=== PATIENT | male | born 1965 | race Two or more races ===

== ENCOUNTER 2024-06-11 14:37 | Emergency (ER) | payer MEDICAID, SELFPAY ==
--- NOTE | 2024-06-11 14:42 | EKG_ITS ---
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: : 1965 Requested By: ED Temporary Provider Order Number: [id number] Reading MD: ED Temporary Provider Measurements Intervals [place] Rate: 58 P: 60 MN: 143 QRS: -45 QRSD: 124 T: 4 QT: 399 QTc: 395 Interpretive Statements SINUS BRADYCARDIA WITH OCCASIONAL VENTRICULAR PREMATURE COMPLEXES POSSIBLE RIGHT VENTRICULAR CONDUCTION DELAY [RSR (QR) IN V1/V2] LEFT ANTERIOR FASCICULAR BLOCK [QRS AXIS <= -45, QR IN I, RS IN II] MODERATE VOLTAGE CRITERIA FOR LVH, CONSIDER NORMAL VARIANT [MEETS CRITERIA IN ONE OF: R(aVL), S(V1), R(V5), R(V5/V6)+S(V1)] NONSPECIFIC T-WAVE ABNORMALITY No previous ECG available for comparison /store/S0/[id number].pdf
[2024-06-11 15:55] VITALS: BP 149/79; PULSE 67; RESP 18; TEMP 36.9; O2SAT 95; BMI 38.7
--- NOTE | 2024-06-11 16:13 | XR_ITS ---
Examination: PA lateral chest 2 views TECHNIQUE: Upright PA lateral chest 2 views Exam date and time: June 11, 2024 1628 hours INDICATIONS: Chest pain left arm pain numbness nausea beginning today. FINDINGS: Mild prominence left ventricle Increased AP dimension chest on the lateral view Reduced inspiratory effort Suspicious for early pneumonia left base obscuring detail left hemidiaphragm No pulmonary edema IMPRESSION: Suspicious for early left base pneumonia
--- NOTE | 2024-06-11 16:13 | PD.EDRME ---
Rapid Medical Screening Exam RME Arrival date/time: 06/11/24 14:37 58-year-old male who admits to not taking his blood pressure medication presents emergency department today with complaints of elevated blood pressure and chest pain Chief Complaint: Chest Pain Time Seen by Provider: 06/11/24 14:43 Vital signs: Vital Signs Temperature 98.5 F 06/11/24 15:55 Pulse Rate 67 06/11/24 15:55 Respiratory Rate 18 06/11/24 15:55 Blood Pressure 149/79 H 06/11/24 15:55 Pulse Oximetry (%) 95 06/11/24 15:55 Oxygen Delivery Method Room Air 06/11/24 15:55
[2024-06-11 16:40] LABS: Collection Type, Urine Clean Catch; Squamous Epithelial Cell,Urine 0 /hpf (0-5); WBC,Urine 0 /hpf (0-5)
[2024-06-11 16:54] LABS: Amphetamine/Methamp Scrn,U Negative (Negative); Barbiturate Screen,Urine Negative (Negative); Benzodiazepines Screen,Urine Negative (Negative); Benzoylecgonine Screen, Ur Negative (Negative); Fentanyl Screen,Urine Negative (Negative); Opiate Screen,Urine Negative (Negative); THC Screen,Urine Negative (Negative)
[2024-06-11 17:20] LABS: Basophils % (Auto) 0 % (0-2.5); Eosinophils # (Auto) 0.1 Thou/mm3 (0.0-0.5); Eosinophils % (Auto) 1 % (0-10); Hematocrit 47.5 % (41.0-53.0); Hemoglobin 16.7 g/dL (13.5-16.0); Immature Granulocytes % (Auto) 0 % (0-0); Immature Granulocytes Auto 0.02 Thou/mm3 (0.00-0.00); Lymphocytes # (Auto) 1.8 Thou/mm3 (1.0-4.8); Lymphocytes % (Auto) 22 % (10-50); Mean Corpuscular HGB Conc 35.2 g/dl (31.0-37.0); Mean Corpuscular Hemoglobin 30.1 pg (25.0-35.0); Mean Corpuscular Volume 86 fL (80-100); Monocytes # (Auto) 0.9 Thou/mm3 (0.0-0.8); Monocytes % (Auto) 10 % (0-12); Neutrophils # (Auto) 5.5 Thou/mm3 (1.8-7.7); Neutrophils % (Auto) 67 % (37-80); Nucleated Red Blood Cell % 0 /100 WBC (0); Platelet Count 251 Thou/mm3 (140-440); RDW Standard Deviation 39.9 fL (35.1-43.9); Red Blood Count 5.55 Miln/mm3 (4.50-5.90); White Blood Count 8.3 Thou/mm3 (3.8-10.6)
[2024-06-11 17:20] LABS: Bilirubin,Urine Negative (Negative); Blood,Urine Negative (Negative); Clarity,Urine Clear (Clear/Hazy); Color,Urine Yellow (Lt Yel-Yel); Glucose, Urine Negative (Negative); Hyaline Casts,Urine < 1 /hpf (0-1); Ketones,Urine Negative (Negative); Leukocyte Esterase,Urine Negative (Negative); Nitrite,Urine Negative (Negative); Protein,Urine 1+ (Neg - Trace); RBC,Urine < 1 /hpf (0-3); Specific Gravity,Urine 1.034 (1.001-1.035)
[2024-06-11 17:31] LABS: INR 0.9 (0.9-1.3); Partial Thromboplastin Time 25.8 Seconds (22.0-36.0); Prothrombin Time 10.4 Seconds (9.0-12.2)
[2024-06-11 17:32] LABS: B-Type Natriuretic Peptide < 20 pg/mL (0-100)
[2024-06-11 17:33] LABS: Alanine Aminotransferase 26 U/L (10-49); Albumin, Serum 4.7 gm/dL (3.5-5.0); Albumin/Globulin Ratio 1.6 (1.2-2.2); Alkaline Phosphatase 93 U/L (46-116); Anion Gap 10 (7-16); Aspartate Amino Transferase 23 U/L (0-34); BUN/Creatinine Ratio 17 Ratio (12-20); Bilirubin,Total 1.2 mg/dL (0.3-1.2); Blood Urea Nitrogen 17 mg/dL (9-23); Calcium 9.5 mg/dL (8.3-10.6); Calcium (Corrected) 9.5 mg/dL (8.5-10.1); Carbon Dioxide 25.9 mMol/L (20.0-31.0); Chloride 104 mMol/L (98-107); Estimated Creatinine Clearance 95.5 mL/min (>60); Globulin 2.9 gm/dL (2.3-3.5); Glucose 82 mg/dL (74-106); Magnesium 2.2 mg/dL (1.6-2.6); Osmolality,Calculated 279 (275-295); Potassium 3.7 mMol/L (3.4-5.1); Sodium 140 mMol/L (136-145); Total Protein 7.6 gm/dL (5.7-8.2); Troponin I < 0.020 ng/mL (0.0-0.045); eGFR > 60 See Note
--- NOTE | 2024-06-11 19:20 | EDNOTE_ITS ---
ED Chest Pain RME/HPI General Chief Complaint: Chest Pain Stated Complaint: CHEST PAIN, LEFT ARM NUMBNESS, NAUSEA Time Seen by Provider: 06/11/24 14:43 Arrival date/time: 06/11/24 14:37 RME / HPI RME / HPI narrative: 58-year-old male patient who came in for evaluation regarding left-sided chest pain. Onset of symptoms for several months as on and off stabbing chest pain on the left that lasted for few seconds, severity moderate. Today he is worried because it radiates to the left arm. He also noticed that his blood pressure was elevated. First time he is taking his blood pressure medication again today. Denies any cough denies any shortness of breath. Denies any cigarette smoking, denies any drug abuse, denies any alcohol abuse. Denies any other complaints. No medication was taken prior travel. Related Data Home Medications ?Medication ?Instructions ?Recorded ?Confirmed lisinopril 30 mg tablet 40 mg PO QDAY #0 tabs 11/30/16 omeprazole 20 mg capsule,delayed 20 mg PO QDAY ##0 03/06/17 release Previous Rx's ?Medication ?Instructions ?Recorded hydrocodone 5 mg-acetaminophen 325 1 tab PO BID PRN pain #10 tabs 10/23/20 mg tablet ibuprofen 800 mg tablet 800 mg PO TID PRN pain #30 tabs 10/23/20 ibuprofen 800 mg tablet 800 mg PO TID PRN pain #30 tabs 04/26/23 Allergies Allergy/AdvReac Type Severity Reaction Status Date / Time haloperidol Allergy Severe FACIAL Verified 04/26/23 12:35 DROOP, LOC, SWALLOWS TONGUE Haloperidol Lactate Allergy Severe FACIAL Verified 04/26/23 12:35 DROOP, LOC, SWALLOWS TONGUE buspirone Allergy Unknown Swelling Verified 11/13/23 09:46 loxapine Allergy Unknown SOB Verified 04/26/23 12:35 Review of Systems Review of Systems Narrative Review of Systems: Review of system reviewed and within normal limits except mentioned in HPI ED Exam Narrative Physical exam: VITAL SIGNS: Reviewed. GENERAL APPEARANCE: Alert and interactive, follows commands, no acute distress, HEAD AND FACE: Non-traumatic. ENT: PERRL, pink conjunctivitis, eyelid no trauma, Mucous membrane moist. NECK: Supple, nontender, no nuchal rigidity. CHEST: No tenderness, no crepitus, no paradoxical movement, no retractions. LUNGS: Clear, well ventilated, symmetric, no rales, no wheezing, no ronchi, no stridor, good breath sounds bilaterally. HEART: Regular rate, regular rhythm, no murmur, no gallops. ABDOMEN: Soft, positive bowel sounds, nondistended, no guarding, nontender, no rebound, no masses, RECTAL: Deferred. GENITAL: Deferred. NEUROLOGICAL: Gross motor function intact sensory function intact, Appropriate for age. MUSCULOSKELETAL: low back nontender, full range of motion. EXTREMITIES: Nontender, full range of motion. SKIN: Color pink, dry, no rash, no lacerations, no abrasions, no contusions. LYMPHATICS: Deferred. Course Quality Measures none Orders Category Date Time Status EKG (ED ONLY) *Do not use* NOW Care 06/11/24 14:42 Completed EKG (ED Only) Stat Exams 06/11/24 14:42 Draft XR chest 2V Stat Exams 06/11/24 16:13 Completed B-Type Natriuretic Peptide Stat Lab 06/11/24 16:34 Completed CBC Stat Lab 06/11/24 16:34 Completed Comprehensive Metabolic Panel Stat Lab 06/11/24 16:34 Completed Drug Screen,Urine Stat Lab 06/11/24 16:33 Completed Magnesium Stat Lab 06/11/24 16:34 Completed Partial Thromboplastin Time Stat Lab 06/11/24 16:34 Completed Prothrombin Time with INR Stat Lab 06/11/24 16:34 Completed Troponin I Stat Lab 06/11/24 16:34 Completed Urinalysis Stat Lab 06/11/24 16:33 Completed Vital Signs Vital signs: Vital Signs Temperature 98.5 F 06/11/24 15:55 Pulse Rate 67 06/11/24 15:55 Respiratory Rate 18 06/11/24 15:55 Blood Pressure 149/79 H 06/11/24 15:55 Pulse Oximetry (%) 95 06/11/24 15:55 Oxygen Delivery Method Room Air 06/11/24 15:55 Chest Pain MDM Narrative MDM Narrative:: 58-year-old male patient who came in for evaluation regarding left-sided chest pain. Onset of symptoms for several months as on and off stabbing chest pain on the left that lasted for few seconds, severity moderate. Today he is worried because it radiates to the left arm. He also noticed that his blood pressure was elevated. First time he is taking his blood pressure medication again today. Denies any cough denies any shortness of breath. Denies any cigarette smoking, denies any drug abuse, denies any alcohol abuse. Denies any other complaints. No medication was taken prior travel. Patient's workup today including cardiac workup, all came back normal. Chest x- ray showed possible left pneumonia however patient is not having any chest pain on coughing, and denies any cough, denies any fever. Blood pressure was noted to be 149/79 prior to discharge. Patient appears nontoxic and hemodynamically stable. Patient discharged home and instructed to follow-up with primary care provider in 24 to 48 hours. Instructed to return to the emergency department immediately if worsening of symptoms Patient data External records reviewed:: None Clinical information provided by:: patient and family Social determinants that could affect healthcare access:: none Patient has the following chronic illnesses:: Hypertension How is presenting disease/condition affected by chronic disease/condition?: exacerbated by Evaluation data The following diagnostics were reviewed and interpreted by me:: lab results, radiology exam(s) and EKG tracing(s) Lab and/or radiology exams considered but not ordered:: None Interpretation Summary: EKG as interpreted by me shows sinus bradycardia, ventricular rate of 58 bpm, no ST segment elevation depression noted. Laboratory workup all came back unremarkable including normal troponin. Chest x-ray with possible pneumonia beginning according to the radiologist. Medications / Prescriptions Medications or Prescriptions considered but not ordered:: None Medication administrations:: None Consultations Consultation(s) initiated? (list below): No Diagnosis Chest Pain Differential Diagnosis: pneumothorax, atypical chest pain and chest pain Most likely diagnosis given after review of the tests above:: Intermittent chest pain, hypertension Admission Indicated Admission indicated?: not indicated Explain why admission is indicated or not indicated:: None Admission Request Was there a request for admission?: No Disposition Plan Disposition Plan: Discharge Discharge Attestation Discharge Attestation: The patient and all family members were given an opportunity to ask questions and understood the discharge instructions. Discharge instructions specifically effects, indications for sooner follow up or return to the emergency department, and the expected course of current diagnosis. Patient condition: Stable Discharge Plan Plan Patient Disposition: HOME (Self Care) Disposition Comment: stable Prescriptions/Referrals Prescriptions/Med Rec: No Action lisinopril 30 MG tablet 40 mg PO QDAY Qty: 0 omeprazole 20 MG capsule,delayed release(DR/EC) 20 mg PO QDAY Qty: 0 ibuprofen 800 mg tablet 800 mg PO TID PRN (Reason: pain) Qty: 30 0RF hydrocodone-acetaminophen 5-325 mg tablet 1 tab PO BID MDD 10 PRN (Reason: pain) Qty: 10 0RF ibuprofen 800 mg tablet 800 mg PO TID PRN (Reason: pain) Qty: 30 0RF Referrals: Kevin Nguyễn PA-C [Primary Care Provider] - In 1 week Problem List Clinical Impression: Intermittent left-sided chest pain Patient/Caregiver Discharge Instructions Discharge Activity: activity as tolerated Education Materials: ED Chest Pain, Uncertain Cause Additional Instructions: Thank you for the opportunity for serving you today. You are stable for discharged . You are advised to: Follow-up with your PCP in 1 to 2 days and asked for referral to interchange agent Return to ED for worsening of symptoms Print Language: Pakistani Stand Alone Forms: Kiley Award Info., Patient Portal Info Letter SARAH/RAMANDEEP Supervising Physician EBONY Supervising Physician: MD Jovana
== END 2024-06-11 20:29 | disposition home or self-care (01) ==
PROVIDERS: Nurse Practitioner Primary Care; Emergency Provider Emergency Medicine; PCP Physician Assistant
DX: R07.89 Other chest pain (principal); R00.1 Bradycardia, unspecified; I49.3 Ventricular premature depolarization; I44.4 Left anterior fascicular block; I10 Essential (primary) hypertension
CPT/HCPCS: 36415; 71046; 80053; 80307; 81001; 83735; 83880; 84484; 85025; 85610; 85730; 93005; 99283

== ENCOUNTER 2025-03-19 12:52 | Emergency (ER) | payer MEDICAID, SELFPAY ==
[2025-03-19 13:01] VITALS: BP 154/78; PULSE 68; RESP 20; TEMP 36.6; O2SAT 96; BMI 38.9
--- NOTE | 2025-03-19 13:18 | PD.EDWOUND ---
ED Wound/Laceration-RME/HPI General Chief Complaint: Wound/Laceration Stated Complaint: Laceration to chest from window Time Seen by Provider: 03/19/25 12:57 Arrival date/time: 03/19/25 12:52 59-year-old male patient came in for evaluation regarding left anterior chest wall laceration. Patient sustained a laceration earlier today with electric saw while cutting the window resulting into 4 cm gaping laceration. Patient denies any shortness of breath denies any chest pain. Denies any other injury. Tetanus vaccination is 1 year old. Related Data Home Medications ?Medication ?Instructions ?Recorded ?Confirmed lisinopril 30 mg tablet 40 mg PO QDAY #0 tabs 11/30/16 omeprazole 20 mg capsule,delayed 20 mg PO QDAY ##0 03/06/17 release Previous Rx's ?Medication ?Instructions ?Recorded hydrocodone 5 mg-acetaminophen 325 1 tab PO BID PRN pain #10 tabs 10/23/20 mg tablet ibuprofen 800 mg tablet 800 mg PO TID PRN pain #30 tabs 10/23/20 ibuprofen 800 mg tablet 800 mg PO TID PRN pain #30 tabs 04/26/23 ibuprofen 800 mg tablet 800 mg PO Q8H PRN pain #30 tabs 03/19/25 Allergies Allergy/AdvReac Type Severity Reaction Status Date / Time haloperidol Allergy Severe FACIAL Verified 03/19/25 12:56 DROOP, LOC, SWALLOWS TONGUE Haloperidol Lactate Allergy Severe FACIAL Verified 03/19/25 12:56 DROOP, LOC, SWALLOWS TONGUE buspirone Allergy Unknown Swelling Verified 03/19/25 12:56 loxapine Allergy Unknown SOB Verified 03/19/25 12:56 Review of Systems Review of Systems Narrative Review of Systems: Review of system reviewed and within normal limits except mentioned in HPI ED Exam Narrative Physical exam: VITAL SIGNS: Reviewed. GENERAL APPEARANCE: Alert and interactive, follows commands, no acute distress, HEAD AND FACE: Non-traumatic. ENT: PERRL, pink conjunctivitis, eyelid no trauma, Mucous membrane moist. NECK: Supple, nontender, no nuchal rigidity. CHEST: +4 cm laceration left anterior chest wall, no active bleeding noted, no crepitus, no paradoxical movement, no retractions. LUNGS: Clear, well ventilated, symmetric, no rales, no wheezing, no ronchi, no stridor, good breath sounds bilaterally. HEART: Regular rate, regular rhythm, no murmur, no gallops. ABDOMEN: Soft, positive bowel sounds, nondistended, no guarding, nontender, no rebound, no masses, RECTAL: Deferred. GENITAL: Deferred. NEUROLOGICAL: Gross motor function intact sensory function intact, Appropriate for age. MUSCULOSKELETAL: low back nontender, full range of motion. EXTREMITIES: Nontender, full range of motion. SKIN: Color pink, dry, no rash, no lacerations, no abrasions, no contusions. LYMPHATICS: Deferred. Course Quality Measures none Orders Category Date Time Status Ibuprofen Tab [Motrin Tab] Med 03/19/25 13:17 Discontinued 800 mg PO X1 ONE Lidocaine 1% 20 ml [Xylocaine 1% 20 ML] Med 03/19/25 13:17 Discontinued 20 ml INFL X1 ONE Vital Signs Vital signs: Vital Signs Temperature 97.9 F 03/19/25 13:01 Pulse Rate 68 03/19/25 13:01 Respiratory Rate 20 03/19/25 13:01 Blood Pressure 154/78 H 03/19/25 13:01 Pulse Oximetry (%) 96 03/19/25 13:01 Oxygen Delivery Method Room Air 03/19/25 13:01 PROCEDURES: Laceration Laceration 1: Site: chest Side (If applicable): left Size (cm): 6 Description: irregular Depth: simple, single layer Local Anesthetic: lidocaine 1% Amount of anesthesia used (mL): 10 Pre-repair: wound explored, deep structures intact and wound margins revised Skin layer closed with: nylon Suture size (cm): 4-0 Number of sutures: 8 Technique: simple, interrupted Wound / Laceration MDM Narrative MDM Narrative:: 59-year-old male patient came in for evaluation regarding left anterior chest wall laceration. Patient sustained a laceration earlier today with electric saw while cutting the window resulting into 4 cm gaping laceration. Patient denies any shortness of breath denies any chest pain. Denies any other injury. Tetanus vaccination is 1 year old. Chest x-ray is negative this time. Patient is not having any shortness of breath or chest pain. Laceration is superficial. I do not suspect any penetration. To the thoracic cavity Repair and suturing was done by me see procedure note Patient data External records reviewed:: None Clinical information provided by:: family Social determinants that could affect healthcare access:: none Patient has the following chronic illnesses:: None How is presenting disease/condition affected by chronic disease/condition?: no chronic disease Evaluation data The following diagnostics were reviewed and interpreted by me:: other (specify) (None) Lab and/or radiology exams considered but not ordered:: None Interpretation Summary: None Medications / Prescriptions Medications or Prescriptions considered but not ordered:: None Medication administrations:: Medication Administration History Discontinued Medications Ibuprofen (Ibuprofen Tab 400 Mg Tablet) 800 mg PO X1 ONE Stop: 03/19/25 13:18 Last Admin: 03/19/25 13:44 Dose: 800 mg Documented By: RHONDA Lidocaine HCl (Lidocaine Hcl 1% 20 Ml Vial) 20 ml INFL X1 ONE Stop: 03/19/25 13:18 Last Admin: 03/19/25 13:44 Dose: 20 ml Documented By: RHONDA Comments: USED BY PROVIDER Mili Consultations Consultation(s) initiated? (list below): No Diagnosis Wound Differential Diagnosis: laceration, abrasion and avulsion of skin Most likely diagnosis given after review of the tests above:: Chest wall laceration Admission Indicated Admission indicated?: not indicated Admission Request Was there a request for admission?: No Disposition Plan Disposition Plan: Discharge Discharge Attestation Discharge Attestation: The patient and all family members were given an opportunity to ask questions and understood the discharge instructions. Discharge instructions specifically effects, indications for sooner follow up or return to the emergency department, and the expected course of current diagnosis. Patient condition: Stable Discharge Plan Plan Patient Disposition: HOME (Self Care) Discharge Disposition comment: stable Prescriptions/Referrals Prescriptions/Med Rec: New ibuprofen 800 mg tablet 800 mg PO Q8H PRN (Reason: pain) Qty: 30 0RF No Action lisinopril 30 MG tablet 40 mg PO QDAY Qty: 0 omeprazole 20 MG capsule,delayed release(DR/EC) 20 mg PO QDAY Qty: 0 ibuprofen 800 mg tablet 800 mg PO TID PRN (Reason: pain) Qty: 30 0RF hydrocodone-acetaminophen 5-325 mg tablet 1 tab PO BID MDD 10 PRN (Reason: pain) Qty: 10 0RF ibuprofen 800 mg tablet 800 mg PO TID PRN (Reason: pain) Qty: 30 0RF Problem List Clinical Impression: Laceration of chest wall Patient/Caregiver Discharge Instructions Discharge Activity: activity as tolerated Education Materials: ED Laceration: All Closures Additional Instructions: Thank you for the opportunity for serving you today. You are stable for discharged . You are advised to: Follow-up with your PCP in 1 to 2 days Return to ED for worsening of symptoms Increase oral fluids Take medication as prescribed Daily dressing with bacitracin as needed For removal of sutures in 7 to 10 days Print Language: Salvadorean Stand Alone Forms: [employer]iley Award Info., Patient Portal Info Letter PA/RAMANDEEP Supervising Physician PA/RAMANDEEP Supervising Physician: MD Gisselle
[2025-03-19] MEDS: IBUPROFEN TAB 400 MG TABLET 800 MG PO (13:44)
[2025-03-19] MEDS: LIDOCAINE HCL 1% 20 ML VIAL INFL (13:44)
== END 2025-03-19 14:17 | disposition home or self-care (01) ==
LOC: SERX 14:33
PROVIDERS: Emergency Provider Emergency Medicine
DX: S21.112A Laceration without foreign body of left front wall of thorax without penetration into thoracic cavity, initial encounter (principal); W25.XXXA Contact with sharp glass, initial encounter
CPT/HCPCS: 12002; 99281; J3490; A9270